=== PATIENT | female | born 1940 | race Caucasian/White ===

== ENCOUNTER 2017-11-15 11:50 | Emergency (ER) | payer MEDICARE, OTHER ==
[2017-11-15] MEDS ORDERED: Sodium Chloride 0.9% 10 ML Syringe FLUSH PRN (12:27)
[2017-11-15] MEDS ORDERED: Sodium Chloride 0.9% 250 ML IV ONE (12:27)
[2017-11-15] MEDS ORDERED: Meclizine 12.5 MG Tab PO ONE (12:28)
--- NOTE | 2017-11-15 13:42 | EDM.PDOC ---
ED HPI GENERAL MEDICAL PROBLEM - General Chief Complaint: Neurological Problem Stated Complaint: DIZZY Time Seen by Provider: 11/15/17 11:54 Source of Information: Reports: Patient, RN Notes Reviewed - History of Present Illness INITIAL COMMENTS - FREE TEXT/NARRATIVE: 77 year old female with nospecific dizziness this morning. Onset about 1 AM when up to the [id number] to 11 lhrs ago, still very dizzy and unsteady on her feet when up to the bathroom at 4 AM and than when up for the day 8 AM. She feels better to lie still, worse to move her head and especially to stand and walk. Was seen briefly at [facility], transferred here for full evaluation. No Mcclure, mild nausea earlier, now gone, no vomiting, mild vertigo sensation but the sensation of very unsteady on her feet. Also mildly lightheaded. BP low on arrival to ED but states she normally runs very low, upper 80's on occasion but ofter around 100 systolic. On mult meds for Htn, CHF , also type 2 diabetic. No chest pain or difficulty breathing. Upper Back Pain Score (Numeric/FACES): 5 - Related Data Allergies Allergy/AdvReac Type Severity Reaction Status Date / Time soy Allergy Diarrhea Verified 11/15/17 12:05 Home Meds: Home Meds Acetaminophen [Tylenol Extra Strength] 500 - 1,000 mg PO BID 11/15/17 [History] Aspirin [Halfprin] 81 mg PO DAILY 11/15/17 [History] Carvedilol [Coreg] 12.5 mg PO BID 11/15/17 [History] Denosumab [Prolia] 1 ml INJECT ASDIRECTED 11/15/17 [History] Ezetimibe [Zetia] 5 mg PO DAILY 11/15/17 [History] FLUoxetine [PROzac] 20 mg PO DAILY 11/15/17 [History] Ferrous Sulfate 65 mg PO DAILY 11/15/17 [History] Fluticasone Propionate [Flonase] 1 - 2 spray INH BID PRN 11/15/17 [History] Furosemide [Lasix] 80 mg PO DAILY 11/15/17 [History] Lisinopril 2.5 mg PO DAILY 11/15/17 [History] Meloxicam [Mobic] 7.5 mg PO BID 11/15/17 [History] Nitroglycerin 0.4 mg SL ASDIRECTED 11/15/17 [History] Omeprazole 20 mg PO DAILY 11/15/17 [History] Ondansetron HCl [Zofran] 4 mg PO Q6H PRN 11/15/17 [History] Polyethylene Glycol 3350 [MiraLAX] 1 packet PO DAILY PRN 11/15/17 [History] Rosuvastatin [Crestor] 20 mg PO DAILY 11/15/17 [History] Spironolactone [Aldactone] 12.5 mg PO DAILY 11/15/17 [History] Triamcinolone Acetonide [IJD: Triamcinolone Acetonide 0.1% Crm] 1 applic TOP BID PRN 11/15/17 [History] busPIRone [Buspar] 15 mg PO DAILY 11/15/17 [History] metFORMIN [Glucophage] 1,000 mg PO BID 11/15/17 [History] Past Medical History Cardiovascular History: Reports: High Cholesterol, Hypertension Musculoskeletal History: Reports: Osteoarthritis Endocrine/Metabolic History: Reports: Diabetes, Type II - Past Surgical History Cardiovascular Surgical History: Reports: Carotid Stents Neurological Surgical History: Reports: C-Spine, Lumbar Spine Social & Family History - Tobacco Use Smoking Status *Q: Never Smoker - Recreational Drug Use Recreational Drug Use: No ED ROS GENERAL - Review of Systems Review Of Systems: See Below Constitutional: Denies: Fever, Chills, Diaphoresis HEENT: Reports: Sinus Problem (she did have sinus infection 1-2 wks ago, now better). Denies: Ear Discharge, Ear Pain, Throat Pain Respiratory: Denies: Shortness of Breath, Wheezing, Pleuritic Chest Pain, Cough Cardiovascular: Denies: Chest Pain GI/Abdominal: Reports: Nausea. Denies: Diarrhea, Vomiting Musculoskeletal: Reports: No Symptoms Skin: Reports: No Symptoms Neurological: Reports: Dizziness, Difficulty Walking (due to balance difficulty) . Denies: Headache, Numbness, Tingling, Trouble Speaking, Weakness ED EXAM, DIZZINESS - Physical Exam Exam: See Below General Appearance: Alert, No Apparent Distress Eye Exam: Bilateral Eye: Nystagmus (very mild horizontal), PERRL Ears: Normal External Exam, Normal TMs Nose: Normal Inspection Throat/Mouth: Normal Inspection, Normal Oropharynx Head Exam: Atraumatic Respiratory/Chest: No Respiratory Distress, Lungs Clear, Normal Breath Sounds Cardiovascular: Regular Rate, Rhythm GI/Abdominal: Soft, Non-Tender. No: Guarding Neurological: Alert, No Motor/Sensory Deficits Extremities: Normal Inspection, Normal Range of Motion, Pedal Edema (very mild LLE) Skin Exam: Warm, Dry, Normal Color EKG INTERPRETATION EKG Date: 11/15/17 Rhythm: NSR [place]: Normal P-Wave: Present ST-T: Other (t waves somewhat flat ant and inf. leads) Course - Vital Signs Last Recorded V/S: Last Vital Signs Temp 96.6 F 11/15/17 11:56 Pulse 69 11/15/17 11:56 Resp 17 11/15/17 11:56 BP 122/71 11/15/17 11:56 Pulse Ox 99 11/15/17 11:56 - Orders/Labs/Meds Orders: Active Orders 24 hr Category Date Time Status EKG 12 Lead [EKG Documentation Completion] [RC] STAT Care 11/15/17 12:26 Active Peripheral IV Care [RC] . DIRECTED Care 11/15/17 12:28 Active Head wo Cont [CT] Stat Exams 11/15/17 12:26 Taken Sodium Chloride 0.9% [Saline Flush] Med 11/15/17 12:27 Active 10 ml FLUSH ASDIRECTED PRN Peripheral IV Insertion Adult [OM.PC] Stat Oth 11/15/17 12:27 Ordered Medication Orders Sodium Chloride (Saline Flush) 10 ml FLUSH ASDIRECTED PRN PRN Reason: Keep Vein Open Last Admin: 11/15/17 12:40 Dose: 10 ml Labs: Laboratory Tests 11/15/17 11/15/17 Range/Units 12:40 12:40 WBC 7.52 (3.98-10.04) K/mm3 RBC 4.14 (3.98-5.22) M/mm3 Hgb 12.3 (11.2-15.7) gm/L Hct 38.4 (34.1-44.9) % MCV 92.8 (79.4-94.8) fl MCH 29.7 (25.6-32.2) pg MCHC 32.0 L (32.2-35.5) g/dl RDW Std Deviation 43.4 (36.4-46.3) fL Plt Count 227 (182-369) K/mm3 MPV 9.3 L (9.4-12.3) fl Neut % (Auto) 53.2 (34.0-71.1) % Lymph % (Auto) 36.0 (19.3-51.7) % [place] % (Auto) 6.9 (4.7-12.5) % Eos % (Auto) 3.5 (0.7-5.8) Baso % (Auto) 0.3 (0.1-1.2) % Neut # (Auto) 4.00 (1.56-6.13) K/mm3 Lymph # (Auto) 2.71 (1.18-3.74) K/mm3 [place] # (Auto) 0.52 H (0.24-0.36) K/mm3 Eos # (Auto) 0.26 (0.04-0.36) K/mm3 Baso # (Auto) 0.02 (0.01-0.08) K/mm3 Sodium 139 (136-145) mEq/L Potassium 5.1 (3.5-5.1) mEq/L Chloride 103 (98-107) mEq/L Carbon Dioxide 27 (21-32) mEq/L Anion Gap 14.1 (5-15) BUN 48 H (7-18) mg/dL Creatinine 1.7 H (0.55-1.02) mg/dL Est Cr Clr Drug Dosing 21.57 mL/min Estimated GFR (MDRD) 29 (>60) mL/min BUN/Creatinine Ratio 28.2 H (14-18) Glucose 90 (83-115) mg/dL Calcium 8.6 (8.5-10.1) mg/dL Total Bilirubin 0.3 (0.2-1.0) mg/dL AST 52 H (15-37) U/L ALT 66 H (14-59) U/L Alkaline Phosphatase 38 L (46-116) U/L Total Protein 6.4 (6.4-8.2) g/dl Albumin 3.4 (3.4-5.0) g/dl Globulin 3.0 gm/dL Albumin/Globulin Ratio 1.1 (1-2) Meds: Medications Generic Name Dose Route Start Last Admin Trade Name Freq PRN Reason Stop Dose Admin Sodium Chloride 10 ml 11/15/17 12:27 11/15/17 12:40 Saline Flush FLUSH 10 ml ASDIRECTED PRN Administration Keep Vein Open Discontinued Medications Generic Name Dose Route Start Last Admin Trade Name Steph PRN Reason Stop Dose Admin Sodium Chloride 250 mls @ 999 mls/hr 11/15/17 12:27 11/15/17 12:40 Normal Saline IV 11/15/17 12:42 999 mls/hr .BOLUS ONE Administration Meclizine HCl 12.5 mg 11/15/17 12:28 11/15/17 12:33 Antivert PO 11/15/17 12:29 12.5 mg ONETIME ONE Administration - Re-Assessments/Exams Free Text/Narrative Re-Assessment/Exam: 11/15/17 13:[address], no acute changes. 11/15/17 14:28, creat up to 1.7 from 1.3 2 wks ago, today, K 5.1 similar to prior values, she still is suffering from some peripheral leg edema, will not adjust her diruetics or other BP meds today, she has an appt. to see Dr Shannon in 5 days, will have her cut back on her metformin from 1000 mg bid to 500 mg bid for now. Antivert 12.5 mg bid for 3 days. She feels much better after antivert PO, up to bathroom a short time ago without difficulty. Departure - Departure Time of Disposition: 14:18 Disposition: Home, Self-Care 01 Condition: Fair Clinical Impression: Labyrinthitis Qualifiers: Laterality: unspecified laterality Qualified Code(s): H83.09 - Labyrinthitis, unspecified ear - Discharge Information Referrals: Amita Shannon MD [Primary Care Provider] - Forms: ED Department Discharge Additional Instructions: your creatnine today was 1.7, up from prior recent clinic labs so that will need to be watched carefully. For now cut back on your metformin to 500 mg twice daily from 1000 mg twice daily. Antivert 12.5 mg, 1/2 of a 25 mg twice daily for 3 days and than as needed for further dizziness, available OTC in a bottle of 100. Follow up with Dr Shannon as planned, return to ED as needed if symptoms worsening in any way. - My Orders Last 24 Hours: My Active Orders 11/15/17 12:26 EKG 12 Lead [EKG Documentation Completion] [RC] STAT Head wo Cont [CT] Stat 11/15/17 12:27 Sodium Chloride 0.9% [Saline Flush] 10 ml FLUSH ASDIRECTED PRN Peripheral IV Insertion Adult [OM.PC] Stat 11/15/17 12:28 Peripheral IV Care [RC] . DIRECTED - Assessment/Plan Last 24 Hours: My Active Orders 11/15/17 12:26 EKG 12 Lead [EKG Documentation Completion] [RC] STAT Head wo Cont [CT] Stat 11/15/17 12:27 Sodium Chloride 0.9% [Saline Flush] 10 ml FLUSH ASDIRECTED PRN Peripheral IV Insertion Adult [OM.PC] Stat 11/15/17 12:28 Peripheral IV Care [RC] . DIRECTED
--- NOTE | 2017-11-17 07:59 | CT ---
Head CT Technique: Multiple axial sections through the brain were obtained. Comparison: No prior intracranial imaging. Findings: Ventricles along with basal cisterns and sulci over the convexities are mildly prominent. Minimal areas of diminished density noted within the periventricular white matter compatible with small vessel ischemic demyelination change. No other abnormal parenchymal densities are seen. No evidence of intracranial hemorrhage. No midline shift or mass effect is seen. Bone window settings were reviewed which show no acute calvarial abnormality. Visualized sinuses are clear. Impression: 1. Mild senescent change. 2. No acute intracranial abnormality is identified. Diagnostic code #3 I agree with preliminary report from [facility], finalized at 11/15/17, 2:45 PM Central Time
== END 2017-11-15 14:45 | disposition home or self-care (01) ==
LOC: JD.ED 11:50
DX: H83.09 Labyrinthitis, unspecified ear (principal); I10 Essential (primary) hypertension; E78.00 Pure hypercholesterolemia, unspecified; E11.9 Type 2 diabetes mellitus without complications; Z79.84 Long term (current) use of oral hypoglycemic drugs; Z79.899 Other long term (current) drug therapy; Z79.82 Long term (current) use of aspirin; Z91.018 Allergy to other foods
CPT/HCPCS: 36415; 70450; 80053; 85025; 93005; 96360; 99285; A9270; J7040; J7050; 93010; 99283

== ENCOUNTER 2019-06-23 11:01 | Emergency (ER) | payer MEDICARE, OTHER ==
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
== END 2019-06-23 15:40 ==
LOC: JD.ED 11:01 → SUPCPDRO 11:01 → JD.ED 15:40
DX: M54.5 Low back pain (principal); R53.1 Weakness; R62.7 Adult failure to thrive; E78.00 Pure hypercholesterolemia, unspecified; I10 Essential (primary) hypertension; F41.9 Anxiety disorder, unspecified; F32.9 Major depressive disorder, single episode, unspecified; E11.9 Type 2 diabetes mellitus without complications; Z98.1 Arthrodesis status; Z91.018 Allergy to other foods; Z79.899 Other long term (current) drug therapy; Z79.82 Long term (current) use of aspirin
CPT/HCPCS: 99283; 99284

== ENCOUNTER 2019-08-19 07:01 | Day surgery (SDC) | payer MEDICARE, OTHER, SELFPAY ==
[~2019-08-19 07:01] MED LIST: Lactated Ringers 1,000 ML IV SCH; Lidocaine 1%/Sod Bicarbonate in NS 8.4% 1 ML Syringe IDERM PRN; Sodium Chloride 0.9% 1,000 ML IV SCH; Sodium Chloride 0.9% 10 ML Syringe FLUSH PRN
[2019-08-19] MEDS ORDERED: Propofol 200 MG/20 ML SDV ONE ×2 (07:21→08:28)
[2019-08-19] MEDS ORDERED: Lidocaine 1% 2 ML ONE (07:21)
--- NOTE | 2019-08-19 07:43 | PCM.PREANE ---
Preanesthetic Assessment - Procedure Proposed Procedure: colonoscopy - Anesthesia/Transfusion/Family Hx Anesthesia History: Prior Anesthesia Without Reaction Family History of Anesthesia Reaction: Yes (history of nausea in family members only) Transfusion History: No Prior Transfusion(s) Intubation History: Unknown (history of cervical fusion ) - Review of Systems General: No Symptoms Pulmonary: No Symptoms Cardiovascular: Chest Pain (1-2 times per year takes nitro for this and relieves , follows up with embedded linux developer, last ekg SR with [facility]BB[facility]) Gastrointestinal: Other (regularly takes stool softener ) Other: Reports: Easy Bleeding, Easy Bruising, Diabetes - Physical Assessment NPO Status Date: 08/19/19 NPO Status Time: 00:50 Height: 1.55 m ASA Class: 3 Mental Status: Alert & Oriented x3 Airway Class: Mallampati = 4 Dentition: Reports: Broken Tooth/Teeth (not loose according to patient ) ROM/Head Extension: Limited/Partial (unable to go to right) Lungs: Clear to Auscultation, Normal Respiratory Effort Cardiovascular: Regular Rate, Regular Rhythm - Lab Values: Cr 1.39 Hgb 11.4 - Allergies Allergies/Adverse Reactions: Allergies Allergy/AdvReac Type Severity Reaction Status Date / Time soy AdvReac Diarrhea Verified 06/23/19 11:12 - Blood Blood Available: No - Anesthesia Plan Pre-Op Medication Ordered: None - Acknowledgements Anesthesia Type Planned: MAC Pt an Appropriate Candidate for the Planned Anesthesia: Yes Alternatives and Risks of Anesthesia Discussed w Pt/Guardian: Yes Pt/Guardian Understands and Agrees with Anesthesia Plan: Yes PreAnesthesia Questionnaire HEENT History: Reports: Cataract Other HEENT History: wears reading eyeglasses. 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 Respiratory History: Reports: Bronchitis, Recurrent, Pneumonia, Recurrent Gastrointestinal History: Reports: Chronic Constipation Genitourinary History: Reports: UTI, Recurrent PRODUCTION STAFF WORKER History: Reports: , Spontaneous Musculoskeletal History: Reports: Osteoarthritis Other Musculoskeletal History: Duputreyans disease R hand Psychiatric History: Reports: Anxiety, Depression Endocrine/Metabolic History: Reports: Diabetes, Type II Hematologic History: Reports: Anemia, Iron Deficiency Other Oncologic History: Melanomas Dermatologic History: Reports: Melanoma Other Dermatologic History: Cyst removal from R pinky - Infectious Disease History Infectious Disease History: Reports: Chicken Pox, Measles, Mumps - Past Surgical History HEENT Surgical History: Reports: Adenoidectomy, Tonsillectomy, Other (See Below) Other HEENT Surgeries/Procedures: Neck C1-C2 surgery 2010. C4-C5 surgery in 2001. Cardiovascular Surgical History: Reports: Carotid Stents Other Cardiovascular Surgeries/Procedures: Angiograms x8 Neurological Surgical History: Reports: C-Spine, Lumbar Spine - HOME MEDS Home Medications: Home Meds Acetaminophen [Tylenol Extra Strength] 1,000 mg PO TID 11/15/17 [History] Aspirin [Halfprin] 81 mg PO DAILY 11/15/17 [History] Carvedilol [Coreg] 12.5 mg PO BID 11/15/17 [History] Ezetimibe [Zetia] 5 mg PO BEDTIME 11/15/17 [History] FLUoxetine [PROzac] 20 mg PO DAILY 11/15/17 [History] Fluticasone Propionate [Flonase] 1 - 2 spray INH BID PRN 11/15/17 [History] Furosemide [Lasix] 80 mg PO DAILY 11/15/17 [History] Nitroglycerin 0.4 mg SL ASDIRECTED PRN 11/15/17 [History] Omeprazole 20 mg PO DAILY 11/15/17 [History] Rosuvastatin [Crestor] 20 mg PO BEDTIME 11/15/17 [History] Triamcinolone Acetonide [IJD: Triamcinolone Acetonide 0.1% Crm] 1 applic TOP BID PRN 11/15/17 [History] busPIRone [Buspar] 7.5 mg PO BID 11/15/17 [History] Calcium Carbonate/Vitamin D3 [Calcium 600-Vit D3 800 Tab] 600 - 800 mg PO BID [History] Docusate Sodium 100 mg PO TID 04/06/19 [History] Multivitamin [Multivitamins] 1 cap PO DAILY 04/06/19 [History] glipiZIDE [Glipizide ER] 5 mg PO DAILY 04/06/19 [History] Furosemide 40 mg PO QPM 06/23/19 [History] Hydrocodone/Acetaminophen [Hydrocodon-Acetaminophen 5-325] 1 - 2 tab PO Q4H PRN 06/23/19 [History] Hydroxychloroquine Sulfate [Plaquenil] 400 mg PO DAILY 06/23/19 [History] Iron Polysaccharide Complex [Ferric X-150] 1 cap PO DAILY 06/23/19 [History] Meclizine [Antivert] 25 mg PO Q4H PRN 06/23/19 [History] diazePAM [Valium] 2.5 mg PO Q6H PRN 06/23/19 [History] - CURRENT (IN HOUSE) MEDS Current Meds: Current Medications Lactated Ringer's (Ringers, Lactated) 1,000 mls @ 125 mls/hr IV ASDIRECTED JULIA Stop: 08/19/19 23:00 Lidocaine/Sodium Bicarbonate (Buffered Lidocaine 1% In Ns 8.4%) 0.25 ml IDERM ONETIME PRN PRN Reason: Prior to IV Start Stop: 08/19/19 18:00 Sodium Chloride (Saline Flush) 10 ml FLUSH ASDIRECTED PRN PRN Reason: Keep Vein Open Stop: 08/19/19 18:00 Discontinued Medications Lidocaine HCl (Xylocaine-Mpf 1%) Confirm Administered Dose 2 mls @ as directed .ROUTE .STK-MED ONE Stop: 08/19/19 07:22 Propofol (Diprivan 20 Ml) Confirm Administered Dose 200 mg .ROUTE .STK-MED ONE Stop: 08/19/19 07:22
--- NOTE | 2019-08-19 08:38 | PCM.OPNOTE ---
- General Post-Op/Procedure Note Date of Surgery/Procedure: 08/19/19 Operative Procedure(s): colonoscopy to cecum Pre Op Diagnosis: iron deficiency anemia Post-Op Diagnosis: Same Anesthesia Technique: MAC Primary Surgeon: Daniel Florez EBL in mLs: 0 Complications: None Condition: Good
--- NOTE | 2019-08-19 08:49 | PCM48HPAN ---
Post Anesthesia Note - EVALUATION WITHIN 48HRS OF ANESTHETIC Vital Signs in Normal Range: Yes Patient Participated in Evaluation: Yes Respiratory Function Stable: Yes Airway Patent: Yes Cardiovascular Function Stable: Yes Hydration Status Stable: Yes Pain Control Satisfactory: Yes Nausea and Vomiting Control Satisfactory: Yes Mental Status Recovered: Yes Vital Signs: Last Vital Signs Temp 36.7 C 08/19/19 08:39 Pulse 60 08/19/19 08:39 Resp 16 08/19/19 08:39 BP 93/55 L 08/19/19 08:39 Pulse Ox 97 08/19/19 08:39
--- NOTE | 2019-08-20 08:21 | OR ---
DATE OF OPERATION: 08/19/2019 SURGEON: Daniel Florez MD PREOPERATIVE DIAGNOSIS: Iron deficiency anemia. POSTOPERATIVE DIAGNOSIS: Iron deficiency anemia. OPERATION PERFORMED: Colonoscopy to cecum. FINDINGS: Normal study. ANESTHESIA: Done under IV sedation. DESCRIPTION OF PROCEDURE: The patient was taken to the endoscopy room, placed in a supine position, connected to monitoring equipment, given IV sedation, placed in left lateral position. Perianal area was inspected and showed some hemorrhoidal tags. Rectal exam showed good sphincter tone. Video Olympus colonoscope introduced into the rectum and threaded up without problem to the cecum, where the ileocecal valve and ileocolonic area was noted. Prep was excellent with [place] cleansing score grade A, and the scope slowly withdrawn showing the cecum, ascending colon, transverse colon, descending colon, sigmoid colon, and rectum. The patient tolerated the procedure, sent to recovery room in a stable condition, and will be followed up in the clinic as needed. ESTIMATED BLOOD LOSS: MMODAL /[id number]
== END 2019-08-19 09:42 | disposition home or self-care (01) ==
LOC: JD.SDS 07:01
PROVIDERS: ATTEND Surgery
DX: D50.9 Iron deficiency anemia, unspecified (principal); E78.5 Hyperlipidemia, unspecified; I25.10 Atherosclerotic heart disease of native coronary artery without angina pectoris; I12.9 Hypertensive chronic kidney disease with stage 1 through stage 4 chronic kidney disease, or unspecified chronic kidney disease; E11.22 Type 2 diabetes mellitus with diabetic chronic kidney disease; N18.3 Chronic kidney disease, stage 3 (moderate); K21.9 Gastro-esophageal reflux disease without esophagitis; M19.90 Unspecified osteoarthritis, unspecified site; F41.9 Anxiety disorder, unspecified; F32.9 Major depressive disorder, single episode, unspecified; Z79.899 Other long term (current) drug therapy; Z79.82 Long term (current) use of aspirin; Z91.018 Allergy to other foods
CPT/HCPCS: 45378; 82962; J2001; J2704; J7030; 00811

== ENCOUNTER 2020-04-05 18:36 | Emergency (ER) | payer MEDICARE, OTHER, MEDICAID ==
--- NOTE | 2020-04-05 19:30 | EDM.PDOC ---
ED HPI GENERAL MEDICAL PROBLEM - General Chief Complaint: Skin Complaint Stated Complaint: CELLULITIS ON BOTH LEGS Time Seen by Provider: 04/05/20 19:30 Source of Information: Reports: Patient History Limitations: Reports: No Limitations - History of Present Illness INITIAL COMMENTS - FREE TEXT/NARRATIVE: 79-year-old female presents to the ED for evaluation of painful swelling left lower extremity. She indicates that she has had a cellulitis of both lower extremities for the last 3 weeks and she is been on one course of antibiotics. She reports a 6 pound weight gain over the last 3 days and increased pain and swelling in the posterior lateral left calf. She gets around with the aid of a walker but does not use the walker at home. She usually only uses it when she is out and about or if it is windy. Indicates that the left leg feels heavier. She states is always more swollen than the right side. Of note the patient is on Lasix 40 mg once daily in the morning. She states this dose has not been changed. She indicates that she does experience dyspnea on minimal exertion. No recent central chest pain. Denies cough or sputum production. Denies any orthopnea. Does not feel short of breath at rest. No history of awakening at night short of breath. Onset: Gradual Onset Date: 04/03/20 (Proximal calf and lateral leg pain getting worse over the last 3 days. Associated 6 pound weight gain.) Duration: Day(s):, Getting Worse Location: Reports: Lower Extremity, Left (Pain primarily in the mid calf and proximal lateral calf.) Quality: Reports: Ache, Throbbing Severity: Moderate (6 out of 10) Improves with: Reports: Rest Worsens with: Reports: Other Context: Reports: Other. Denies: Activity (Worsens of the legs are dependent or she is trying to walk.), Exercise, Lifting, Sick Contact, Trauma Associated Symptoms: Reports: Malaise, Rash (She claims cellulitis both lower extremities but it appears to be more of a venous stasis dermatitis that is chronic), Shortness of Breath ( but was acutely red 3 weeks ago improved with a course of antibiotics.). Denies: Confusion (Spontaneous occurrence.), Chest Pain, Cough, cough w sputum, Diaphoresis, Fever/Chills, Headaches, Loss of Appetite, Nausea/Vomiting, Syncope (Exertion. ), Weakness Treatments [employer]: Reports: Acetaminophen (Tylenol for pain.), Other (see below) (Denies any recent changes to any of her medications.) Bilateral Leg Pain Score (Numeric/FACES): 4 - Related Data Allergies Allergy/AdvReac Type Severity Reaction Status Date / Time soy AdvReac Diarrhea Verified 08/19/19 07:51 Home Meds: Home Meds Acetaminophen [Tylenol Extra Strength] 1,000 mg PO TID 11/15/17 [History] Aspirin [Halfprin] 81 mg PO DAILY 11/15/17 [History] Ezetimibe [Zetia] 5 mg PO BEDTIME 11/15/17 [History] FLUoxetine [PROzac] 20 mg PO DAILY 11/15/17 [History] Fluticasone Propionate [Flonase] 1 - 2 spray INH BID PRN 11/15/17 [History] Furosemide [Lasix] 80 mg PO DAILY 11/15/17 [History] Nitroglycerin 0.4 mg SL ASDIRECTED PRN 11/15/17 [History] Omeprazole 20 mg PO DAILY PRN 11/15/17 [History] Rosuvastatin [Crestor] 20 mg PO BEDTIME 11/15/17 [History] Triamcinolone Acetonide [IJD: Triamcinolone Acetonide 0.1% Crm] 1 applic TOP BID PRN 11/15/17 [History] carvediloL [Coreg] 12.5 mg PO BID 11/15/17 [History] Calcium Carbonate/Vitamin D3 [Calcium 600-Vit D3 800 Tab] 1 tab PO BID 04/06/19 [History] Docusate Sodium 100 mg PO BID 04/06/19 [History] Multivitamin [Multivitamins] 1 tab PO DAILY 04/06/19 [History] glipiZIDE [Glipizide ER] 5 mg PO DAILY 04/06/19 [History] Furosemide 40 mg PO DAILY 06/23/19 [History] Hydroxychloroquine Sulfate [Plaquenil] 400 mg PO DAILY 06/23/19 [History] Meclizine [Antivert] 25 mg PO Q4H PRN 06/23/19 [History] Iron Ag,Ps/C/Fa6/B12/Zn/SA/Sto [Niferex Tablet] 1 tab PO BID 08/19/19 [History] Past Medical History HEENT History: Reports: Cataract Other HEENT History: wears reading eyeglasses. 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 Respiratory History: Reports: Bronchitis, Recurrent, Pneumonia, Recurrent, Sleep Apnea Gastrointestinal History: Reports: Chronic Constipation Genitourinary History: Reports: UTI, Recurrent [employer] History: Reports: , Spontaneous Musculoskeletal History: Reports: Osteoarthritis Other Musculoskeletal History: Duputreyans disease R hand Psychiatric History: Reports: Anxiety, Depression Endocrine/Metabolic History: Reports: Diabetes, Type II Hematologic History: Reports: Anemia, Iron Deficiency Other Oncologic History: Melanomas Dermatologic History: Reports: Cellulitis (Involving both lower extremities off and on for the last couple of years but worse the last 3 weeks.), Melanoma Other Dermatologic History: Cyst removal from R pinky - Infectious Disease History Infectious Disease History: Reports: Chicken Pox, Measles, Mumps - Past Surgical History HEENT Surgical History: Reports: Adenoidectomy, Oral Surgery, Tonsillectomy, Other (See Below) Other HEENT Surgeries/Procedures: Neck C1-C2 surgery 2010. C4-C5 surgery in 2001. dental extraction Cardiovascular Surgical History: Reports: Carotid Stents Other Cardiovascular Surgeries/Procedures: Angiograms x8 Neurological Surgical History: Reports: C-Spine, Lumbar Spine Social & Family History - Tobacco Use Smoking Status *Q: Never Smoker - Caffeine Use Caffeine Use: Reports: Coffee, Tea Other Caffeine Use: drinks decaf coffee. - Recreational Drug Use Recreational Drug Use: No - Living Situation & Occupation Living situation: Reports: Occupation: Retired [employer] - Review of Systems Review Of Systems: See Below Constitutional: Reports: Malaise, Weakness, Fatigue, Weight Gain (6 pounds over the last 3 to 4 days.). Denies: Fever, Chills, Decreased Appetite, Weight Loss HEENT: Reports: Glasses Respiratory: Reports: Shortness of Breath. Denies: Wheezing, Pleuritic Chest Pain (Exertion.), Cough, Sputum Cardiovascular: Reports: Blood Pressure Problem, Dyspnea on Exertion, Edema (Edema both lower extremities usually the left leg worse than the right. She does not wear compressive stockings. History of bilateral varicose veins. No history of DVT in either leg.). Denies: Chest Pain, Claudication (Medication for hypertension), Lightheadedness, Orthopnea, Palpitations (Chronically) GI/Abdominal: Reports: Constipation (Well-controlled with Colace 2 tablets daily and eating oatmeal every morning.) : Reports: Frequency, Incontinence (Both urge and stress components.) Musculoskeletal: Reports: Back Pain, Joint Pain (Knees both hips neck and shoulders at times.), Other (Devious surgery left great toe with pinning to ankylosed the first MTP joint several years ago. She denies having a bunion in this area.) Skin: Reports: Bruising Neurological: Reports: No Symptoms (This fairly easily.) Psychiatric: Reports: No Symptoms Hematologic/Lymphatic: Reports: No Symptoms Immunologic: Reports: No Symptoms ED EXAM, SKIN/RASH Exam: See Below Exam Limited By: No Limitations General Appearance: Alert, WD/WN, Mild Distress, Other (Temperature is 36.4. Heart rate is 63 and sinus respiratory to 17. O2 sats 95-96% on room air. Blood pressure is 138/79. Air) Eye Exam: Bilateral Eye: Normal Inspection (No blepharal pallor or scleral icterus.) Throat/Mouth: Other Head: Atraumatic (And is mildly dry and coated.), Normocephalic Neck: Normal Inspection, Limited Range of Motion, Tender Lateral (But is on lateral rotation bilaterally.), Other (No JVD.). No: Supple, Carotid Bruit, Thyromegaly ( Mild bilateral cervical spine.) Respiratory/Chest: No Respiratory Distress, Lungs Clear, Normal Breath Sounds, Chest Non-Tender Cardiovascular: Regular Rate, Rhythm, No Gallop, No Murmur, No Rub. No: Normal Peripheral Pulses, No Edema Peripheral Pulses: 1+: Posterior Tibial (L) (Is are barely palpable in both feet due to edema.), Posterior Tibial (R), Dorsalis Pedis (L), Dorsalis Pedis (R), 2+: Carotid (L), Carotid (R) GI/Abdominal: Normal Bowel Sounds, Soft, Non-Tender, No Organomegaly, No Mass, Pelvis Stable, Other (Moderately obese. Abdominal girth limits ability to palpate solid organs.) Back Exam: Decreased Range of Motion, Vertebral Tenderness (Tenderness throughout the lumbar spine. Limited ability to sit up on her own. She req uired help to sit up on the bedside.) Extremities: Pedal Edema (3+ pitting edema left lower extremity 2+ pitting edema right lower extremity. Varicosities noted throughout both lower extremities. There is erythema of the anterior medial aspects of both legs which is not warm or hot touch.. There is a a linear erythema proximal lateral left lower extremity again nontender not warm to palpation. It appears that the erythema is secondary to venous stasis dermatitis.) Psychiatric: Normal Mood Skin: Erythema (Full areas both anterior lower extremities over the shins and medial legs. Also has erythematous linear rash over the lateral proximal left lower extremity. It is not tender or warm to palpation.) Location, Skin: Lower Extremity, Right, Lower Extremity, Left Characteristics: Macular Associated features: Swelling (If there is significant edema both lower extremities.). No: Warmth, Tenderness Course - Vital Signs Last Recorded V/S: Last Vital Signs Temp 36.4 C 04/05/20 19:06 Pulse 63 04/05/20 19:06 Resp 17 04/05/20 19:06 BP 138/79 04/05/20 19:06 Pulse Ox - Orders/Labs/Meds Labs: Laboratory Tests 04/05/20 04/05/20 04/05/20 Range/Units 20:50 20:50 20:50 WBC 5.43 (3.98-10.04) K/mm3 RBC 4.03 (3.98-5.22) M/mm3 Hgb 12.2 (11.2-15.7) gm/dl Hct 39.0 (34.1-44.9) % MCV 96.8 H D (79.4-94.8) fl MCH 30.3 (25.6-32.2) pg MCHC 31.3 L (32.2-35.5) g/dl RDW Std Deviation 45.5 (36.4-46.3) fL Plt Count 205 (182-369) K/mm3 MPV 9.0 L (9.4-12.3) fl Neutrophils % (Manual) 54 (40-60) % Band Neutrophils % 0 (0-10) % Lymphocytes % (Manual) 41 H (20-40) % Atypical Lymphs % 0 % Monocytes % (Manual) 2 (2-10) % Eosinophils % (Manual) 3 (0.7-5.8) % Basophils % (Manual) 0 L (0.1-1.2) Platelet Estimate Adequate Poikilocytosis 1+ slight Ovalocytes 1+ slight RBC Morph Comment Not Reportable PT 10.8 (9.7-12.0) SECONDS INR 0.99 APTT 25 (22-31) SECONDS D-Dimer, Quantitative 0.41 (0.19-0.50) mg/L Sodium 141 (136-145) mEq/L Potassium 3.9 (3.5-5.1) mEq/L Chloride 103 (98-107) mEq/L Carbon Dioxide 29 (21-32) mEq/L Anion Gap 12.9 (5-15) BUN 34 H (7-18) mg/dL Creatinine 1.4 H (0.55-1.02) mg/dL Est Cr Clr Drug Dosing 23.02 mL/min Estimated GFR (MDRD) 36 (>60) mL/min BUN/Creatinine Ratio 24.3 H (14-18) Glucose 92 (83-115) mg/dL Calcium 8.9 (8.5-10.1) mg/dL Magnesium 2.2 (1.8-2.4) mg/dl Total Bilirubin 0.2 (0.2-1.0) mg/dL AST 75 H (15-37) U/L ALT 148 H (14-59) U/L Alkaline Phosphatase 71 (46-116) U/L Troponin I < 0.017 (0.00-0.056) ng/mL C-Reactive Protein < 0.2 (<1.0) mg/dL NT-Pro-B Natriuret Pep (0-450) pg/mL Total Protein 6.5 (6.4-8.2) g/dl Albumin 3.2 L (3.4-5.0) g/dl Globulin 3.3 gm/dL Albumin/Globulin Ratio 1.0 (1-2) 04/05/20 Range/Units 20:50 WBC (3.98-10.04) K/mm3 RBC (3.98-5.22) M/mm3 Hgb (11.2-15.7) gm/dl Hct (34.1-44.9) % MCV (79.4-94.8) fl MCH (25.6-32.2) pg MCHC (32.2-35.5) g/dl RDW Std Deviation (36.4-46.3) fL Plt Count (182-369) K/mm3 MPV (9.4-12.3) fl Neutrophils % (Manual) (40-60) % Band Neutrophils % (0-10) % Lymphocytes % (Manual) (20-40) % Atypical Lymphs % % Monocytes % (Manual) (2-10) % Eosinophils % (Manual) (0.7-5.8) % Basophils % (Manual) (0.1-1.2) Platelet Estimate Poikilocytosis Ovalocytes RBC Morph Comment PT (9.7-12.0) SECONDS INR APTT (22-31) SECONDS D-Dimer, Quantitative (0.19-0.50) mg/L Sodium (136-145) mEq/L Potassium (3.5-5.1) mEq/L Chloride (98-107) mEq/L Carbon Dioxide (21-32) mEq/L Anion Gap (5-15) BUN (7-18) mg/dL Creatinine (0.55-1.02) mg/dL Est Cr Clr Drug Dosing mL/min Estimated GFR (MDRD) (>60) mL/min BUN/Creatinine Ratio (14-18) Glucose (83-115) mg/dL Calcium (8.5-10.1) mg/dL Magnesium (1.8-2.4) mg/dl Total Bilirubin (0.2-1.0) mg/dL AST (15-37) U/L ALT (14-59) U/L Alkaline Phosphatase (46-116) U/L Troponin I (0.00-0.056) ng/mL C-Reactive Protein (<1.0) mg/dL NT-Pro-B Natriuret Pep 1388 H (0-450) pg/mL Total Protein (6.4-8.2) g/dl Albumin (3.4-5.0) g/dl Globulin gm/dL Albumin/Globulin Ratio (1-2) - Radiology Interpretation Free Text/Narrative:: 79-year-old female presents to the ED with diffuse lower extremity edema which is chronic but worse in the left lower extremity over the last 3 to 4 days with an associated 6 pound weight gain. Patient has a history of significant congestive heart failure and is currently believe on Lasix only 40 mg once daily in the morning. Previous records indicate used to take 80 mg and she is not were sure when this was changed. She is concerned due to the increased pain posterior left calf of the left proximal lateral calf. She does have an trever thematous rash on both lower extremities which she reports is been present for at least 3 weeks. She apparently has been a course of antibiotics one time for cellulitis. On today's examination erythema is macular in distribution primarily over the shins and is not warm or tender to touch to suggest a cellulitis. Appears to be secondary more to diffuse chronic dependent edema and venous stasis dermatitis. Plan routine labs including serum magnesium and BNP. She will have a d-dimer assay as well. She will have an ultrasound of her left lower extremity rule out DVT. - Re-Assessments/Exams Free Text/Narrative Re-Assessment/Exam: 04/05/20 21:32 labs reveal a normal white count at 5.43. Differential is 54% neutrophils and no band cells reported. Hemoglobin is 12.2 with hematocrit of 39.0. MCV is mildly elevated 96.8. Platelet count is 205,000. Ultrasound of the left lower extremity shows no evidence of deep venous thrombosis within the left lower extremity or within the right common femoral vein. Chemistry is pending. 04/05/20 21:51 PT is 10.8 with an INR of 0.99. PTT is normal at 25. D-dimer is also normal at 0.41. Sodium 141 with a potassium of 3.9. Chloride is 103 with a bicarb of 29. Anion gap is normal at 12.9. BUN is elevated at 34 with a creatinine of 1.4. GFR is 36 i.e. stage III chronic kidney disease. Leukosis 92 with a calcium of 8.9. Magnesium is normal at 2.2. Total bilirubin is 0.2. AST is 75 mildly elevated ALT mildly elevated at 148 alk phos stays normal at 71. Because of the mild transaminase elevation is likely secondary to passive hepatic congestion as she has significant dependent edema suggestive of right- sided heart failure. Troponin I is less than 0.017 C-reactive protein is less than 0.2. BNP is elevated at 1388. Total protein is 6.5 with an albumin fraction low at 3.2. 04/05/20 22:01 Patient with the patient she indicates that she takes 40 mg of Lasix twice a day now. I will there increase her to 60 mg in the morning and 60 mg in the p.m. for 3 days and then leave her on 60 mg in the morning and 40 mg in the p.m. until review with her primary care physician sometime within the next week. She is to step on the scale and monitor her weight daily. Departure - Departure Time of Disposition: 21:51 Disposition: Home, Self-Care 01 Condition: Fair Clinical Impression: Dependent edema, Venous stasis dermatitis of both lower extremities, Pain of left lower extremity - Discharge Information *PRESCRIPTION DRUG MONITORING PROGRAM REVIEWED*: Not Applicable *COPY OF PRESCRIPTION DRUG MONITORING REPORT IN PATIENT [facility]: Not Applicable Instructions: Chronic Venous Insufficiency, Stasis Dermatitis, Edema, [id number] Referrals: Amita Shannon MD [Primary Care Provider] - Forms: ED Department Discharge Additional Instructions: Evaluation in the emergency room tonight in regards to increased weight gain of 6 pounds documented at home over the last 3 to 4 days. Increased swelling of the left lower extremity in relation to the right which is always the case but worse than normal. Increased pain left lower extremity over the last day or 2. Doppler ultrasound of the left lower extremity is negative for any deep venous thrombosis or blood clots. Also blood tests are negative for any blood clots. There is an increased amount of edema with some fluid in your lungs on evaluation by lab testing. Suggest increase of your Lasix to 60 mg ( 1 1/2 tabs ) mg twice daily first thing in the morning and about 2 PM in the afternoon for the next 3 days and then reduce to 60 mg( 1 1/2tab) in the morning and 40 mg( one tab) in the p.m. until follow-up with your personal care physician sometime within the next week. Elevate the legs as much as possible.. May apply heat to the left lower extremity for pain relief if needed. Sepsis Event Note (ED) - Evaluation Sepsis Screening Result: No Definite Risk - Focused Exam Vital Signs: Vital Signs Temp Pulse Resp BP 04/05/20 19:06 36.4 C 63 17 138/79
--- NOTE | 2020-04-05 21:10 | US ---
Left lower extremity deep venous ultrasound: Duplex and color Doppler evaluation was obtained the left common femoral, proximal greater saphenous, superficial femoral, popliteal, posterior tibial and peroneal veins. Right common femoral vein was also evaluated. Comparison: No prior venous imaging. Findings: Peroneal vein is not optimally seen. Other vein show normal phasic, augmentation and compression. Impression: 1. No evidence of deep venous thrombosis within the left lower extremity or within the right common femoral vein. Diagnostic code #2 This report was dictated in MDT
== END 2020-04-05 22:15 | disposition home or self-care (01) ==
LOC: JD.ED 18:36
DX: I87.8 Other specified disorders of veins (principal); I87.2 Venous insufficiency (chronic) (peripheral); R60.0 Localized edema; E78.00 Pure hypercholesterolemia, unspecified; I10 Essential (primary) hypertension; I25.2 Old myocardial infarction; E11.9 Type 2 diabetes mellitus without complications; F41.9 Anxiety disorder, unspecified; F32.9 Major depressive disorder, single episode, unspecified; M19.90 Unspecified osteoarthritis, unspecified site; Z79.84 Long term (current) use of oral hypoglycemic drugs; Z91.018 Allergy to other foods; Z79.82 Long term (current) use of aspirin; Z79.899 Other long term (current) drug therapy
CPT/HCPCS: 36415; 80053; 83735; 83880; 84484; 85007; 85027; 85379; 85610; 85730; 86140; 93971-26-LT; 93971-LT; 99284-25

== ENCOUNTER 2023-10-08 14:47 | Emergency (ER) | payer MEDICARE, OTHER, MEDICAID ==
[2023-10-08] MEDS ORDERED: Sodium Chloride 0.9% 10 ML Syringe FLUSH PRN (15:16)
[2023-10-08] MEDS ORDERED: Meclizine 25 MG Tab PO ONE (15:17)
[2023-10-08 15:51] LABS: BASOPHILS PERCENT AUTO 0.3 % (0.0-1.0); EOSINOPHILS ABSOLUTE AUTO 0.1 K/mm3 (0.0-0.4); EOSINOPHILS PERCENT AUTO 1.8 % (0.0-6.0); HEMOGLOBIN 11.9 gm/dl (12.0-16.0); IMMATURE GRAN ABSOLUTE AUTO 0.01 K/mm3 (0.00-0.05); IMMATURE GRAN PERCENT AUTO 0.2 % (0.0-0.4); LYMPHOCYTES ABSOLUTE AUTO 2.7 K/mm3 (1.0-4.8); LYMPHOCYTES PERCENT AUTO 44.4 % (24.0-44.0); MEAN CORPUSCULAR HEMOGLOBIN 31.9 pg (28.0-32.0); MEAN CORPUSCULAR HGB CONC 32.2 g/dl (32.0-36.0); MEAN CORPUSCULAR VOLUME 99.2 fl (83.0-99.0); MEAN PLATELET VOLUME 10.1 fl (9.4-12.3); MONOCYTES ABSOLUTE AUTO 0.5 K/mm3 (0.0-0.8); MONOCYTES PERCENT AUTO 7.8 % (0.0-8.0); NEUTROPHILS ABSOLUTE AUTO 2.8 K/mm3 (1.8-7.7); NEUTROPHILS PERCENT AUTO 45.5 % (41.0-71.0); PLATELET COUNT,PLT 176 K/mm3 (150-400); RED BLOOD CELL COUNT 3.73 M/mm3 (4.10-5.30); WHITE BLOOD CELL COUNT,WBC 6.13 K/mm3 (3.9-11.3)
[2023-10-08 16:26] LABS: A/G RATIO 1.1 (1-2); ALBUMIN 3.3 g/dl (3.4-5.0); ANION GAP 11.4 (5-15); BILIRUBIN TOTAL 0.2 mg/dL (0.2-1.0); BUN/CREATININE RATIO 22.3 (14-18); CALCIUM 8.8 mg/dL (8.5-10.1); CREATININE 1.3 mg/dL (0.55-1.02); EST CRCL DRUG DOSING (CG) 23.14 mL/min; MAGNESIUM 2.1 mg/dL (1.8-2.4); POTASSIUM,K 4.4 mEq/L (3.5-5.1); PROTEIN TOTAL,TP 6.4 g/dl (6.4-8.2)
== END 2023-10-08 16:55 | disposition home or self-care (01) ==
LOC: JD.ED 14:47
DX: R42 Dizziness and giddiness (principal); I10 Essential (primary) hypertension; I25.2 Old myocardial infarction; E78.00 Pure hypercholesterolemia, unspecified; E11.9 Type 2 diabetes mellitus without complications; Z79.899 Other long term (current) drug therapy; Z79.84 Long term (current) use of oral hypoglycemic drugs; Z79.82 Long term (current) use of aspirin; Z91.018 Allergy to other foods
CPT/HCPCS: 36415; 70450; 80053; 83735; 84484; 85025; 93005; 99285; A9270; J3490; 93010; 99282

== ENCOUNTER 2024-07-13 15:36 | Emergency (ER) | payer MEDICARE, OTHER ==
[2024-07-13] MEDS ORDERED: Sodium Chloride 0.9% 10 ML Syringe FLUSH PRN (16:24)
[2024-07-13 17:09] LABS: BASOPHILS PERCENT AUTO 0.2 % (0.0-1.0); EOSINOPHILS PERCENT AUTO 0.3 % (0.0-6.0); HEMATOCRIT 40.5 % (37.0-47.0); HEMOGLOBIN 12.9 gm/dl (12.0-16.0); IMMATURE GRAN ABSOLUTE AUTO 0.02 K/mm3 (0.00-0.05); IMMATURE GRAN PERCENT AUTO 0.3 % (0.0-0.4); LYMPHOCYTES ABSOLUTE AUTO 1.5 K/mm3 (1.0-4.8); LYMPHOCYTES PERCENT AUTO 23.9 % (24.0-44.0); MEAN CORPUSCULAR HEMOGLOBIN 29.5 pg (28.0-32.0); MEAN CORPUSCULAR HGB CONC 31.9 g/dl (32.0-36.0); MEAN CORPUSCULAR VOLUME 92.7 fl (83.0-99.0); MEAN PLATELET VOLUME 10.6 fl (9.4-12.3); MONOCYTES ABSOLUTE AUTO 0.3 K/mm3 (0.0-0.8); MONOCYTES PERCENT AUTO 5.6 % (0.0-8.0); NEUTROPHILS ABSOLUTE AUTO 4.3 K/mm3 (1.8-7.7); NEUTROPHILS PERCENT AUTO 69.7 % (41.0-71.0); PLATELET COUNT,PLT 142 K/mm3 (150-400); RED BLOOD CELL COUNT 4.37 M/mm3 (4.10-5.30)
[2024-07-13 17:32] LABS: ALBUMIN 3.2 g/dl (3.4-5.0); ANION GAP 12.8 (5-15); BILIRUBIN TOTAL 0.6 mg/dL (0.2-1.0); BUN/CREATININE RATIO 34.1 (14-18); CALCIUM 8.9 mg/dL (8.5-10.1); CREATININE 1.7 mg/dL (0.55-1.02); EST CRCL DRUG DOSING (CG) 18.59 mL/min; POTASSIUM,K 4.8 mEq/L (3.5-5.1); PROTEIN TOTAL,TP 6.3 g/dl (6.4-8.2)
[2024-07-13 17:43] LABS: CORONAVIRUS COVID-19 NAA NEGATIVE (NEGATIVE); INFLUENZA A NAA NEGATIVE (NEGATIVE); RESPIRATORY SYNCYTIAL VIR NAA NEGATIVE (NEGATIVE)
[2024-07-13] MEDS ORDERED: Furosemide 40 MG/4 ML VIAL IVPUSH ONE (18:06)
[2024-07-13] MEDS: Bumetanide 1 MG/4 ML MDV IVPUSH ONE (19:10)
[2024-07-14 05:29] LABS: ALBUMIN 2.9 g/dl (3.4-5.0); ANION GAP 15.3 (5-15); BILIRUBIN TOTAL 0.5 mg/dL (0.2-1.0); BUN/CREATININE RATIO 36.7 (14-18); CALCIUM 8.6 mg/dL (8.5-10.1); CREATININE 1.5 mg/dL (0.55-1.02); EST CRCL DRUG DOSING (CG) 21.07 mL/min; POTASSIUM,K 4.3 mEq/L (3.5-5.1); PROTEIN TOTAL,TP 5.7 g/dl (6.4-8.2)
[2024-07-14 05:42] LABS: BASOPHILS PERCENT AUTO 0.2 % (0.0-1.0); EOSINOPHILS ABSOLUTE AUTO 0.1 K/mm3 (0.0-0.4); EOSINOPHILS PERCENT AUTO 1.3 % (0.0-6.0); HEMATOCRIT 38.7 % (37.0-47.0); HEMOGLOBIN 12.3 gm/dl (12.0-16.0); IMMATURE GRAN ABSOLUTE AUTO 0.01 K/mm3 (0.00-0.05); IMMATURE GRAN PERCENT AUTO 0.2 % (0.0-0.4); LYMPHOCYTES ABSOLUTE AUTO 1.5 K/mm3 (1.0-4.8); LYMPHOCYTES PERCENT AUTO 25.1 % (24.0-44.0); MEAN CORPUSCULAR HEMOGLOBIN 29.3 pg (28.0-32.0); MEAN CORPUSCULAR HGB CONC 31.8 g/dl (32.0-36.0); MEAN CORPUSCULAR VOLUME 92.1 fl (83.0-99.0); MEAN PLATELET VOLUME 10.9 fl (9.4-12.3); MONOCYTES ABSOLUTE AUTO 0.3 K/mm3 (0.0-0.8); MONOCYTES PERCENT AUTO 5.4 % (0.0-8.0); NEUTROPHILS ABSOLUTE AUTO 4.1 K/mm3 (1.8-7.7); NEUTROPHILS PERCENT AUTO 67.8 % (41.0-71.0); PLATELET COUNT,PLT 104 K/mm3 (150-400); WHITE BLOOD CELL COUNT,WBC 5.98 K/mm3 (3.9-11.3)
== END 2024-07-14 08:55 | disposition home or self-care (01) ==
LOC: JD.ED 15:36
DX: I11.0 Hypertensive heart disease with heart failure (principal); I50.9 Heart failure, unspecified; R60.0 Localized edema; E78.00 Pure hypercholesterolemia, unspecified; I25.2 Old myocardial infarction; M19.90 Unspecified osteoarthritis, unspecified site; E11.9 Type 2 diabetes mellitus without complications; Z86.16 Personal history of COVID-19; Z79.82 Long term (current) use of aspirin; Z79.899 Other long term (current) drug therapy; Z79.84 Long term (current) use of oral hypoglycemic drugs; Z88.8 Allergy status to other drugs, medicaments and biological substances; Z91.018 Allergy to other foods
CPT/HCPCS: 0241U; 36415; 71045; 80053; 83880; 84484; 85025; 93005; 96374; 99285; J3490; 93010; 99284

== ENCOUNTER 2024-09-01 11:53 | Emergency (ER) | payer MEDICARE, OTHER ==
[2024-09-01 13:19] LABS: BASOPHILS PERCENT AUTO 0.2 % (0.0-1.0); EOSINOPHILS ABSOLUTE AUTO 0.1 K/mm3 (0.0-0.4); EOSINOPHILS PERCENT AUTO 0.9 % (0.0-6.0); HEMATOCRIT 37.1 % (37.0-47.0); HEMOGLOBIN 12.3 gm/dl (12.0-16.0); IMMATURE GRAN ABSOLUTE AUTO 0.01 K/mm3 (0.00-0.05); IMMATURE GRAN PERCENT AUTO 0.2 % (0.0-0.4); LYMPHOCYTES ABSOLUTE AUTO 1.7 K/mm3 (1.0-4.8); LYMPHOCYTES PERCENT AUTO 24.8 % (24.0-44.0); MEAN CORPUSCULAR HEMOGLOBIN 30.8 pg (28.0-32.0); MEAN CORPUSCULAR HGB CONC 33.2 g/dl (32.0-36.0); MEAN PLATELET VOLUME 9.6 fl (9.4-12.3); MONOCYTES ABSOLUTE AUTO 0.5 K/mm3 (0.0-0.8); MONOCYTES PERCENT AUTO 7.1 % (0.0-8.0); NEUTROPHILS ABSOLUTE AUTO 4.4 K/mm3 (1.8-7.7); NEUTROPHILS PERCENT AUTO 66.8 % (41.0-71.0); PLATELET COUNT,PLT 186 K/mm3 (150-400); RED BLOOD CELL COUNT 3.99 M/mm3 (4.10-5.30); WHITE BLOOD CELL COUNT,WBC 6.64 K/mm3 (3.9-11.3)
[2024-09-01 13:58] LABS: A/G RATIO 0.9 (1-2); ANION GAP 16.6 (5-15); BILIRUBIN TOTAL 0.5 mg/dL (0.2-1.0); BUN/CREATININE RATIO 31.1 (14-18); CALCIUM 8.6 mg/dL (8.5-10.1); CREATININE 2.8 mg/dL (0.55-1.02); EST CRCL DRUG DOSING (CG) 10.55 mL/min; MAGNESIUM 2.6 mg/dL (1.8-2.4); POTASSIUM,K 5.6 mEq/L (3.5-5.1); PROTEIN TOTAL,TP 6.5 g/dl (6.4-8.2)
[2024-09-01] MEDS: Sodium Chloride 0.9% 500 ML IV ONE (16:30)
[2024-09-01] MEDS: Bumetanide 1 MG/4 ML MDV IVPUSH ONE (16:30)
== END 2024-09-01 18:00 ==
LOC: JD.ED 11:53
DX: N17.9 Acute kidney failure, unspecified (principal); I11.0 Hypertensive heart disease with heart failure; I50.9 Heart failure, unspecified; I25.2 Old myocardial infarction; E78.00 Pure hypercholesterolemia, unspecified; E11.9 Type 2 diabetes mellitus without complications; Z86.16 Personal history of COVID-19; Z95.5 Presence of coronary angioplasty implant and graft; Z79.899 Other long term (current) drug therapy; Z79.01 Long term (current) use of anticoagulants; Z79.82 Long term (current) use of aspirin; Z91.018 Allergy to other foods; Z88.8 Allergy status to other drugs, medicaments and biological substances
CPT/HCPCS: 36415; 71045; 80053; 83735; 83880; 85025; 87428; 93005; 96361; 96374; 99285; J3490; J7030